=== PATIENT | male | born 1990 | race American Indian/Alaskan Native ===

== ENCOUNTER 2021-08-23 06:34 | Emergency (ER) | payer SELFPAY ==
[2021-08-23 06:40] VITALS: BP 118/70
[2021-08-23] MEDS ORDERED: ACETAMINOPHEN 325 MG TAB PO STA (07:08)
[2021-08-23] MEDS ORDERED: IBUPROFEN 400 MG TAB PO ONE (07:08)
[2021-08-23] MEDS ORDERED: LIDOCAINE VISCOUS 2% 15 ML ORAL LIQD PO ONE (07:08)
--- NOTE | 2021-08-23 07:11 | Emergency Department Report ---
ED General Adult HPI - General Chief complaint: Dental/Oral Stated complaint: TOOTHACHE/NECK PAIN PUI?: No Time Seen by Provider: 08/23/21 06:41 Source: patient, RN notes reviewed, old records reviewed Mode of arrival: Ambulatory Limitations: No Limitations - History of Present Illness Initial comments: The patient is a 31-year-old gentleman. He is not known to myself previously. He has a history of marijuana consumption. He presents to the ER today with complaint of nontraumatic dental pain, on the lateral aspect of teeth #30, 31 and 32. The patient brushes his teeth once or twice a day. He flosses sporadically. No recent dental cleaning. Positive sensitivity to hot and cold. No dysphonia, no dysphagia. Also complains of nontraumatic anterior cervical neck pressure. Is not taking any medication [id number]. Neck pain increases with palpation and range of motion. It decreases with rest. Dental pain increases with chewing, eating, drinking, and percussion. Denies additional injuries and complaints. -: Gradual, days(s) Location: mouth, neck Radiation: non-radiation Quality: aching Consistency: other Improves with: other Worsens with: other Associated Symptoms: denies other symptoms - Related Data Previous Rx's Medication Instructions Recorded Last Taken Type Acetaminophen [Non-Aspirin Extra 500 mg PO Q6HR PRN #30 tablet 08/23/21 Unknown Rx Strength] Chlorhexidine Mouthwash [Peridex] 15 ml MM BID #1 bottle 08/23/21 Unknown Rx Ibuprofen [Motrin] 600 mg PO Q8H PRN #30 tablet 08/23/21 Unknown Rx Allergies Allergy/AdvReac Type Severity Reaction Status Date / Time No Known Allergies Allergy Unverified 06/26/15 14:03 ED Review of Systems ROS: Stated complaint: TOOTHACHE/NECK PAIN Other details as noted in HPI Constitutional: denies: fever ENT: dental pain. denies: ear pain, throat pain, congestion Respiratory: denies: cough Cardiovascular: denies: chest pain Gastrointestinal: denies: abdominal pain Musculoskeletal: myalgia Neurological: denies: weakness ED Past Medical Hx - Past Medical History Previous Medical History?: No - Surgical History Past Surgical History?: No - Social History Smoking Status: Current Every Day Smoker Substance Use Type: Alcohol, Methamphetamines - Medications Home Medications: Home Medications Medication Instructions Recorded Confirmed Last Taken Type Acetaminophen [Non-Aspirin Extra 500 mg PO Q6HR PRN #30 tablet 08/23/21 Unknown Rx Strength] Chlorhexidine Mouthwash [Peridex] 15 ml MM BID #1 bottle 08/23/21 Unknown Rx Ibuprofen [Motrin] 600 mg PO Q8H PRN #30 tablet 08/23/21 Unknown Rx ED Physical Exam - General Limitations: No Limitations General appearance: alert, in no apparent distress - Head Head exam: Present: atraumatic, normocephalic - Eye Eye exam: Present: normal appearance, EOMI. Absent: nystagmus - ENT ENT exam: Present: normal exam, normal orophraynx, mucous membranes moist, normal external ear exam, other (The patient is not stridulous. The tongue is midline. There is no elevation of the base of the tongue. Dental caries are noted. Gingival hyperpigmentation is noted. Plaque buildup is appreciated.) - Neck Neck exam: Present: normal inspection, full ROM, lymphadenopathy. Absent: tenderness, meningismus - Respiratory Respiratory exam: Present: normal lung sounds bilaterally. Absent: respiratory distress, wheezes, rales, rhonchi, stridor - Cardiovascular Cardiovascular Exam: Present: regular rate, normal rhythm, normal heart sounds. Absent: bradycardia, tachycardia, irregular rhythm, systolic murmur, diastolic murmur, rubs, gallop - GI/Abdominal GI/Abdominal exam: Present: soft. Absent: distended, tenderness, guarding, rebound, rigid, pulsatile mass - Rectal Rectal exam: Present: deferred - Extremities Exam Extremities exam: Present: normal inspection, full ROM, other (2+ pulses noted in the bilateral upper extremities.) - Back Exam Back exam: Present: normal inspection. Absent: tenderness, CVA tenderness (R), CVA tenderness (L), paraspinal tenderness, vertebral tenderness - Neurological Exam Neurological exam: Present: alert, normal gait, other (No facial droop. Tongue midline. Extraocular movements intact bilaterally. Facial sensation intact to light touch in V1, V2, V3 distribution bilaterally. 5 and a 5 strength in 4 extremities. Sensation intact to light touch in 4 extremities.). Absent: motor sensory deficit - Psychiatric Psychiatric exam: Present: normal affect, normal mood - Skin Skin exam: Present: warm, dry, intact, normal color. Absent: rash ED Course Vital Signs 08/23/21 06:40 Temperature 98.6 F Pulse Rate 70 Respiratory 18 Rate Blood Pressure 118/70 O2 Sat by Pulse 100 Oximetry - Reevaluation(s) Reevaluation #1: 08/23/21 07:20 Differential diagnosis, including but not limited to: Gingivitis, dentalgia, dental caries, marijuana use Assessment and plan: 31-year-old gentleman, who was afebrile, with reassuring vital signs, with a soft supple neck, no meningeal signs, unremarkable posterior pharyngeal examination, with incidental very strong odor of marijuana/cannabis. Patient protecting his airway, is not stridulous. His exam and physical are not suggestive of emergent condition at this time. Discussed marijuana cessation, proper dental hygiene, flossing at least once daily, and close outpatient follow-up with dental. The patient does not appear to have an emergent medical condition present at this time. Discharged with Tylenol, Motrin, chlorhexidine, instructed to follow-up with an outpatient dentist. Return precautions reviewed ED Medical Decision Making - Lab Data Vital Signs 08/23/21 06:40 Temperature 98.6 F Pulse Rate 70 Respiratory 18 Rate Blood Pressure 118/70 O2 Sat by Pulse 100 Oximetry Critical care attestation.: If time is entered above; I have spent that time in minutes in the direct care of this critically ill patient, excluding procedure time. ED Disposition Clinical Impression: Dentalgia Disposition: 01 HOME / SELF CARE / HOMELESS Is pt being admited?: No Does the pt Need Aspirin: No Condition: Good Instructions: Diet and Dental Disease Additional Instructions: Please brush your teeth twice daily. Please floss on a daily basis. Avoid consumption of alcohol, tobacco, smoke products and marijuana. Follow-up with a dentist as soon as possible. Take your medications as directed as needed. Avoid heavy lifting. Return to the emergency room right away with new pain, worsened pain, migration of pain, rectal vomiting, change in mental status, confusion, inability to tolerate liquid feeds, inability to speak, inability to breathe, or any new, worsened or different symptoms not present on the initial emergency room evaluation. Follow-up with a general medical doctor as needed. Prescriptions: Ibuprofen [Motrin] 600 mg PO Q8H PRN #30 tablet PRN Reason: Pain Acetaminophen [Non-Aspirin Extra Strength] 500 mg PO Q6HR PRN #30 tablet PRN Reason: Pain , Severe (7-10) Chlorhexidine Mouthwash [Peridex] 15 ml MM BID #1 bottle Referrals: [facility] [Outside] - 3-5 Days [facility] [Outside] - 3-5 Days Forms: Work/School Release Form(ED)
== END 2021-08-23 08:02 | disposition home or self-care (01) ==
LOC: ED 06:34
DX: K08.89 Other specified disorders of teeth and supporting structures (principal); F17.200 Nicotine dependence, unspecified, uncomplicated; F15.10 Other stimulant abuse, uncomplicated; F12.10 Cannabis abuse, uncomplicated
CPT/HCPCS: 99282